=== PATIENT | female | born 1960 | race Caucasian/White ===

== ENCOUNTER → 2018-09-02 09:20 | Outpatient (CLI) | payer BC, SELFPAY ==
[2018-09-02 12:17] LABS: Absolute Neutrophil Count 2.7 X10^3/uL (2.0-7.7); Basophil# 0.02 X10^3/uL; Basophil% 0.4 % (0-1); Eosinophil# 0.16 X10^3/uL; Eosinophils% 3.1 % (0-5); Hematocrit 38.4 % (37-47); Hemoglobin 12.8 g/dl (12.0-15.0); Lymphocyte % 36.5 % (19-41); Mean Corp Hgb Conc 33.3 g/gl (32-36); Mean Corpuscular Hgb 31.1 pg (27.0-32.0); Mean Corpuscular Volume 93.4 fL (81-99); Mean Platelet Vol. 11.8 fl (6.2-12.0); Monocyte# 0.41 X10^3/uL; Monocyte% 7.9 % (0-10); Neutrophil # 2.71 X10^3/uL (2.7-7.7); Neutrophil % 52.1 % (47-70); Platelet Count 196 K/mm3 (150-450); RBC Distribution Width CV 12.8 % (11.6-14.6); Red Blood Count 4.11 M/mm3 (4.2-5.4); White Blood Count 5.2 K/mm3 (4.4-11.0)
[2018-09-02 12:22] LABS: POSITIVE COUNT NO; POSITIVE DIFFERENTIAL NO; POSITIVE MORPHOLOGY NO
[2018-09-02 12:31] LABS: Hemoglobin A1c 5.3 % (4.2-6.3)
[2018-09-02 12:38] LABS: Vitamin D,25 Hydroxy 32.4 ng/mL (29.95-100.01)
[2018-09-02 12:48] LABS: Homocysteine 7.6 umol/L (3.2-10.7)
[2018-09-02 15:17] LABS: ALB/GLOB Ratio 1.1 RATIO (0.9-2.4); AST(SGOT) 24 U/L (15-37); Alanine Aminotransfer ALT/SGPT 26 U/L (13-56); Albumin, Serum 3.7 g/dL (3.2-5.0); Alkaline Phosphatase 46 U/L (45-117); Anion Gap 10 (5-15); BUN 22 mg/dL (7-18); BUN/Creat Ratio 22.6 RATIO (10-20); CRP, High Sensitivity Cardiac 1.74 mg/L; Calcium,Total 8.7 mg/dL (8.5-10.1); Chloride 106 mmol/L (98-107); Cholesterol 205 mg/dL (200); Creatinine, Serum 0.97 mg/dL (0.55-1.02); EST Glomerular Filtration Rate 62 mL/min (>60); Est Glom Filt Rate - Afr Amer 75 mL/min (>60); Estradiol < 11.0 pg/mL; Ferritin 137 ng/mL (8-252); Follicle Stimulating Hormone 70.5 mIU/mL; Globulin 3.3 g/dL (2.2-4.2); Glucose 81 mg/dL (74-106); High Density Lipoprotein 55 mg/dL; Potassium 3.9 mmol/L (3.5-5.1); Sodium Level 142 mmol/L (136-145); T4 Free Direct 0.95 ng/dL (0.76-1.46); Thyroid Stim Hormone (TSH) 2.59 uIU/mL (0.358-3.74); Triglycerides 102 mg/dL; Very Low Density Lipoprotein 20 mg/dL (5-40)
[2018-09-06 19:07] LABS: DHEA Sulfate 86.6 ug/dL (29.4-220.5); Testosterone, Free 0.08 ng/dL (0.10-0.85); Testosterone, Total 8 ng/dL (3-41)
[2018-09-08 09:49] LABS: Estrogen, Total, Serum 63 pg/mL (.); Sex Hormone-binding Globulin 47.6 nmol/L (17.3-125.0)
--- OUTSIDE RECORDS SUMMARY | 2018-10-26 13:49 | XMS RPT_ITS ---
:1960 Author Organization OHIP Care Team Providers Name Role Phone Dr. Anel De Dios Admitting Unavailable Dr. Anel De Dios Attending Unavailable BRIT FREEMAN MD, JR. Attending Unavailable NAYLA PERALTA, DR. NAMRATA Magallanes Primary Care Unavailable BRIT FREEMAN MD, JR. Attending Unavailable NAYLA PERALTA, DR. NAMRATA Magallanes Primary Care Unavailable KIM WILLIAMSON Attending Unavailable KIM WILLIAMSON Referring Unavailable Namrata Morton Primary Care Unavailable PROBLEMS PROBLEMS DATE TYPE CONDITION / CODE ATTENDING STATUS SOURCE 09/13/2018 Unknown R74.0 - Nonspecific KIM WILLIAMSON Active [place] elevation of levels [facility] lactic acid Repository dehydrogenase [LDH] / R74.0(ICD-10) PROCEDURES PROCEDURES No Procedure Records FoundRESULTS RESULTS CBC W/DIFF, AUTOMATED Collected: 09/02/2018 Status: F Source: ERIC 9:39 AM [facility] HOSPITAL REPOSITORY TYPE CODE TESTS RESULT OUT OF RANGE REFERENCE UNITS LAB L100.1000 4.4-11.0 K/mm3 Normal WBC 5.2 LAB L100.1200 4.2-5.4 M/mm3 Low RBC 4.11 LAB L100.1300 12.0-15.0 g/dl Normal HGB 12.8 LAB L100.1400 37-47 % Normal HCT 38.4 LAB L100.1500 81-99 fL Normal MCV 93.4 LAB L100.1600 27.0-32.0 pg Normal MCH 31.1 LAB L100.1700 32-36 g/gl Normal MCHC 33.3 LAB L100.1810 11.6-14.6 % Normal RDW CV 12.8 LAB L100.1820 35.1-43.9 fl Normal RDW SD 43.0 LAB L100.1900 150-450 K/mm3 Normal PLT 196 LAB L100.2000 6.2-12.0 fl Normal MPV 11.8 LAB L100.2100 47-70 % Normal NEUT% 52.1 LAB L100.2200 19-41 % Normal LY% 36.5 LAB L100.2300 0-10 % Normal MONO% 7.9 LAB L100.2400 0-5 % Normal EO% 3.1 LAB L100.2500 0-1 % Normal BASO% 0.4 LAB L100.2550 0.0-0.9 % Normal IM GRAN % 0.000 Result Comment: IG% - Immature Granulocytes (promyelocytes, myelocytes and metamyelocytes) > 1% indicates that a LEFT SHIFT is Present. LAB L100.2620 2.0-7.7 X10 3/uL Normal Absolute Neut 2.7 LAB L100.2720 0.83-4.51 X10 3/ul Normal Absolute Lymph 1.90 Performed By: #### L100.0100 #### [facility] [address] [place], [place], [address] HEMOGLOBIN A1C Collected: 09/02/2018 Status: F Source: MINTER 9:39 AM [facility] REPOSITORY TYPE CODE TESTS RESULT OUT OF RANGE REFERENCE UNITS LAB L501.9985 4.2-6.3 % Normal HGB A1C 5.3 Performed By: #### L501.9985 #### [facility] [address] [place], [place], [address] VITAMIN D,25 HYDROXY Collected: 09/02/2018 Status: F Source: MINTER 9:39 AM [facility] REPOSITORY Order Comment: Comments: [id number] PREGNENOLONE FRZ TYPE CODE TESTS RESULT OUT OF RANGE REFERENCE UNITS LAB L506.1000 29.95-100.01 ng/mL Normal Vitamin D 32.4 25-OH Result Comment: Vitamin D 25(OH) Status Range Deficiency <20 ng/mL (50nmol/L) Insuffciency 20 - 30 ng/mL (50 - 75 nmol/L) Sufficiency 30 - 100 ng/mL (75 - 250 nmol/L) Toxicity >100 ng/mL (>250 nmol/L) Performed By: #### L506.1000, L509.4001, L509.6000 #### [facility] [address] [place], [place], [address] PROGESTERONE LEVEL Collected: 09/02/2018 Status: F Source: ERIC 9:39 AM [facility] REPOSITORY Order Comment: Comments: [id number] PREGNENOLONE FRZ TYPE CODE TESTS RESULT OUT OF REFERENCE UNITS RANGE LAB L509.4001 See Comment ng/mL Progesterone Normal 0.10 Result Comment: Progesterone Reference Table: UNITS Female: Follicular 0.15 - 1.40 ng/mL Luteal 3.34 - 25.56 ng/mL Mid-luteal 4.44 - 28.03 ng/mL Postmenopausal 0.0 - 0.73 ng/mL : 1st Trimester 11.22 - 90.00 ng/mL 2nd Trimester 25.55 - 89.40 ng/mL 3rd Trimester 48.40 -422.50 ng/mL Performed By: #### L506.1000, L509.4001, L509.6000 #### [facility] [address] [place], [place], [address] CORTISOL SERUM Collected: 09/02/2018 Status: F Source: ERIC 9:39 AM [facility] REPOSITORY Order Comment: Comments: [id number] PREGNENOLONE FRZ TYPE CODE TESTS RESULT OUT OF RANGE REFERENCE UNITS LAB L509.6000 3.09-22.40 ug/dL Normal CORTISOL 8.30 Result Comment: Adult (AM) 4.30 - 22.40 ug/dL Adult (PM) 3.09 - 16.66 ug/dL Performed By: #### L506.1000, L509.4001, L509.6000 #### [facility] [address] [place] [place], [address] HOMOCYSTEINE Collected: 09/02/2018 Status: F Source: ERIC 9:39 [facility] TYPE CODE TESTS RESULT OUT OF REFERENCE UNITS RANGE LAB L503.8001 3.2-10.7 umol/L HOMOCYSTEINE Normal 7.6 Performed By: #### L503.8001 #### [facility] [address] [place], [address] COMPREHENSIVE METABOLIC Collected: 09/02/2018 Status: F Source: ERIC LAI 9:39 AM [facility] REPOSITORY Order Comment: Has Patient had X-rays with Contrast this admission? N Comments: [id number] PREGNENOLONE FRZ TYPE CODE TESTS RESULT OUT OF RANGE REFERENCE UNITS LAB L501.0100 74-106 mg/dL Normal GLU 81 Result Comment: Please note revised GLUCOSE reference range effective 2017. LAB L501.1000 7-18 mg/dL High BUN 22 LAB L501.1100 0.55-1.02 mg/dL Normal CREAT,SERUM 0.97 Result Comment: The validity of the calculated GFR AND GFRAA in patients over 70 years has not been determined. Clinical correlation is essential. LAB L501.1110 >60 mL/min Normal EST GFR 62 Result Comment: Non- GFR Calc LAB L501.1115 >60 mL/min Normal EST GFR - AA 75 Result Comment: GFR Calc LAB L501.1300 10-20 RATIO High BUN/CRE 22.6 LAB L501.1500 6.4-8.2 g/dL T Normal PROT 7.0 LAB L501.1800 3.2-5.0 g/dL Normal ALB 3.7 LAB L501.1950 2.2-4.2 g/dL Normal GLOB 3.3 LAB L501.2000 0.9-2.4 RATIO Normal A/G 1.1 LAB L501.2200 8.5-10.1 mg/dL CA Normal 8.7 LAB L501.4100 15-37 U/L Normal AST 24 LAB L501.4305 45-117 U/L Normal ALK P 46 LAB L501.4405 13-56 U/L Normal ALT 26 LAB L501.4600 0.20-1.00 mg/dL T Normal BILI 0.30 LAB L501.5300 136-145 mmol/L NA Normal 142 LAB L501.5600 3.5-5.1 mmol/L K Normal 3.9 LAB L501.5900 98-107 mmol/L CL Normal 106 LAB L501.6100 21.0-32.0 mmol/L Normal CO2 26.0 LAB L501.6200 5-15 Normal GAP 10 Performed By: #### L500.4050, L500.4100, L501.6750, L501.01903, L501.9520, L503.6550, L506.0400, L3100.5125, L3300.1750 #### [facility] [address] [place], [address] LIPID PROFILE Collected: 09/02/2018 Status: F Source: MINTER 9:39 AM [facility] REPOSITORY Order Comment: Has Patient had X-rays with Contrast this admission? N Comments: [id number] PREGNENOLONE FRZ TYPE CODE TESTS RESULT OUT OF RANGE REFERENCE UNITS LAB L501.4900 200 mg/dL High CHOL 205 Result Comment: <200 mg/dL Desirable 200-240 mg/dL Borderline >240 mg/dL High Risk LAB L501.5000 mg/dL Normal TRIG 102 Result Comment: The drugs N-Acetylcysteine and Metamizole may falsely depress this assay. Serum Triglycerides Reference Interval Normal <150 mg/dL Borderline high 150 - 199 mg/dL High 200 - 499 mg/dL Very High > or = 500 mg/dL LAB L501.6400 mg/dL Normal HDL 55 Result Comment: The drugs N-Acetylcysteine and Metamizole may falsely depress this assay. Reference Range HDL <40 mg/dL Low HDL Cholesterol HDL >or= 60 mg/dL High HDL Cholesterol LAB L501.6500 0-130 mg/dL Normal LDL 130 LAB L501.6600 5-40 mg/dL Normal VLDL 20 Performed By: #### L500.4050, L500.4100, L501.6750, L501.33170, L501.9520, L503.6550, L506.0400, L3100.5125, L3300.1750 #### [facility] [address] [place], [address] CRP, HIGH SENSITIVITY Collected: 09/02/2018 Status: F Source: MINTER CARDIAC 9:39 [facility] REPOSITORY Order Comment: Has Patient had X-rays with Contrast this admission? N Comments: [id number] PREGNENOLONE FRZ TYPE CODE TESTS RESULT OUT OF RANGE REFERENCE UNITS LAB L501.6750 mg/L Normal CRP HIGH 1.74 SENS Result Comment: Low Relative Risk of CVD <1.0 mg/L Average Relative Risk of CVD 1.0 - 3.0 mg/L High Relative Risk of CVD >3.0 mg/L Performed By: #### L500.4050, L500.4100, L501.6750, L501.92949, L501.9520, L503.6550, L506.0400, L3100.5125, L3300.1750 #### [facility] [address] [place], [place], [id number] FREE T3 Collected: 09/02/2018 Status: F Source: ERIC 9:39 [facility] REPOSITORY Order Comment: Has Patient had X-rays with Contrast this admission? N Comments: [id number] PREGNENOLONE FRZ TYPE CODE TESTS RESULT OUT OF RANGE REFERENCE UNITS LAB L501.72499 2.18-3.98 pg/mL Normal FREE T3 3.0 Performed By: #### L500.4050, L500.4100, L501.6750, L501.01533, L501.9520, L503.6550, L506.0400, L3100.5125, L3300.1750 #### [facility] [address] [place], [place], [id number] THYROID STIM HORMONE Collected: 09/02/2018 Status: F Source: ERIC (TSH) 9:39 [facility] REPOSITORY Order Comment: Has Patient had X-rays with Contrast this admission? N Comments: [id number] PREGNENOLONE FRZ TYPE CODE TESTS RESULT OUT OF RANGE REFERENCE UNITS LAB L501.9520 0.358-3.74 uIU/mL Normal TSH 2.59 Performed By: #### L500.4050, L500.4100, L501.6750, L501.79639, L501.9520, L503.6550, L506.0400, L3100.5125, L3300.1750 #### [facility] [address] [place], [address] FERRITIN Collected: 09/02/2018 Status: F Source: MINTER 9:39 AM [facility] REPOSITORY Order Comment: Has Patient had X-rays with Contrast this admission? N Comments: [id number] PREGNENOLONE FRZ TYPE CODE TESTS RESULT OUT OF RANGE REFERENCE UNITS LAB L503.6550 8-252 ng/mL Normal FERRITIN 137 Performed By: #### L500.4050, L500.4100, L501.6750, L501.57015, L501.9520, L503.6550, L506.0400, L3100.5125, L3300.1750 #### [facility] [address] [place], [place], [id number] T4 FREE DIRECT Collected: 09/02/2018 Status: F Source: MINTER 9:39 AM [facility] REPOSITORY Order Comment: Has Patient had X-rays with Contrast this admission? N Comments: [id number] PREGNENOLONE FRZ TYPE CODE TESTS RESULT OUT OF RANGE REFERENCE UNITS LAB L506.0400 0.76-1.46 ng/dL Normal T4 FREE 0.95 DIRECT Performed By: #### L500.4050, L500.4100, L501.6750, L501.30357, L501.9520, L503.6550, L506.0400, L3100.5125, L3300.1750 #### [facility] [address] [place], [place], [address] FOLLICLE STIMULATING Collected: 09/02/2018 Status: F Source: ERIC HORMONE 9:39 AM [facility] REPOSITORY Order Comment: Has Patient had X-rays with Contrast this admission? N Comments: [id number] PREGNENOLONE FRZ TYPE CODE TESTS RESULT OUT OF RANGE REFERENCE UNITS LAB L3100.5125 mIU/mL Normal FSH 70.5 Result Comment: NORMAL REFERENCE RANGES FEMALE FOLLICULAR 2.3 - 12.6 mIU/mL MID-CYCLE PEAK 5.2 - 17.5 mIU/mL LUTEAL 1.7 - 12.9 mIU/mL POST-MENOPAUSAL ON MHT 5.9 - 72.8 mIU/mL NOT ON MHT 12.7 - 132.2 mlU/mL MALE 0.7 - 10.8 mIU/mL NEW TEST METHOD AND REFERENCE RANGES FEBRUARY 19, 2012 Performed By: #### L500.4050, L500.4100, L501.6750, L501.98276, L501.9520, L503.6550, L506.0400, L3100.5125, L3300.1750 #### [facility] [address] [place], [place], [address] (744) ESTRADIOL Collected: 09/02/2018 Status: F Source: ERIC 9:39 AM [facility] REPOSITORY Order Comment: Has Patient had X-rays with Contrast this admission? N Comments: [id number] PREGNENOLONE FRZ TYPE CODE TESTS RESULT OUT OF RANGE REFERENCE UNITS LAB L3300.1750 pg/mL Normal ESTRADIOL < 11.0 Result Comment: NORMAL REFERENCE RANGES FEMALE FOLLICULAR 21.4 - 164.8 pg/mL MID-CYCLE PEAK 49.9 - 367.2 pg/mL LUTEAL 40.2 - 259.0 pg/mL POST-MENOPAUSAL ON MHT <11.0 - 462.1 pg/mL NOT ON MHT <11.0 - 58.3 pg/mL MALE <11.0 - 52.5 pg/mL NOTE: [facility] HAS CONFIRMED THE DRUG FULVETRANT (FASLODEX) MAY CAUSE FALSELY ELEVATED ESTRADIOL RESULTS WHEN USING THIS TEST METHOD. IF PATIENT IS TAKING FULVESTRANT AN ALTERNATIVE METHOD SHOULD BE USED TO DETERMINE ESTRADIOL CONCENTRATION. Performed By: #### L500.4050, L500.4100, L501.6750, L501.36243, L501.9520, L503.6550, L506.0400, L3100.5125, L3300.1750 #### [facility] [address] [place], [place], [address] SEX HORMONE-BINDING Collected: 09/02/2018 Status: F Source: ERIC GLOBULIN 9:39 AM [facility] REPOSITORY Order Comment: Has Patient had X-rays with Contrast this admission? N Comments: [id number] PREGNENOLONE FRZ Has Patient had Radioactive Injection for X-ray?: N TYPE CODE TESTS RESULT OUT OF RANGE REFERENCE UNITS LAB L3100.5060 17.3-125.0 nmol/L Normal SHBG 47.6 Result Comment: Performed at: CB - [facility] [address] [id number] Commercial Kitchen Service Technician: Didier Barrera PhD, Phone: [phone] Performed at: - [facility] [address] [id number] Commercial Kitchen Service Technician: Tam Veloz MD, Phone: [phone] Performed By: #### L3100.5060, L3100.5310, L3300.1500, L3400.0200 #### [facility] (refer to report for specific site) refer to report for address and phone number TESTOSTERONE, TOTAL / Collected: 09/02/2018 Status: F Source: ERIC FREE 9:39 AM [facility] REPOSITORY Order Comment: Has Patient had X-rays with Contrast this admission? N Comments: [id number] PREGNENOLONE FRZ Has Patient had Radioactive Injection for X-ray?: N TYPE CODE TESTS RESULT OUT OF RANGE REFERENCE UNITS LAB L3100.5320 3-41 ng/dL Normal TESTOSTER,TOTAL 8 LAB L3100.5340 0.10-0.85 ng/dL Low TESTOSTER,FREE 0.08 LAB L3100.5360 0.50-2.80 % Normal TESTOSTER %FREE 1.00 Performed By: #### L3100.5060, L3100.5310, L3300.1500, L3400.0200 #### [facility] (refer to report for specific site) refer to report for address and phone number DHEA SULFATE Collected: 09/02/2018 Status: F Source: ERIC 9:39 AM [facility] REPOSITORY Order Comment: Has Patient had X-rays with Contrast this admission? N Comments: [id number] PREGNENOLONE FRZ Has Patient had Radioactive Injection for X-ray?: N TYPE CODE TESTS RESULT OUT OF RANGE REFERENCE UNITS LAB L3300.1500 29.4-220.5 ug/dL Normal DHEA SULF 86.6 4020 Performed By: #### L3100.5060, L3100.5310, L3300.1500, L3400.0200 #### [facility] (refer to report for specific site) refer to report for address and phone number ESTROGEN, TOTAL, SERUM Collected: 09/02/2018 Status: F Source: ERIC 9:39 AM [facility] REPOSITORY Order Comment: Has Patient had X-rays with Contrast this admission? N Comments: [id number] PREGNENOLONE FRZ Has Patient had Radioactive Injection for X-ray?: N TYPE CODE TESTS RESULT OUT OF RANGE REFERENCE UNITS LAB L3400.0200 . pg/mL Normal ESTROGEN 4549 63 Result Comment: Prepubertal <40 Female Cycle: 1-10 Days 61 - 394 11-20 Days 122 - 437 21-30 Days 156 - 350 Post-Menopausal <40 HMG Treatment for Ovulation Induction: 400 - 800 Performed By: #### L3100.5060, L3100.5310, L3300.1500, L3400.0200 #### [facility] (refer to report for specific site) refer to report for address and phone number MISCELLANEOUS LAB Collected: 09/02/2018 Status: F Source: ERIC PROCEDURE 9:39 AM [facility] REPOSITORY Order Comment: Comments: [id number] PREGNENOLONE FRZ Test(s) Ordered: [id number] PREGNENOLONE FRZ TYPE CODE TESTS RESULT OUT OF RANGE REFERENCE UNITS LAB L801.1541 Normal [facility] LAB TEST Result Comment: TEST RESULT LIMITS Pregnenolone, MS 19 ng/dL Reference Range: Adults: <151 TESTING PERFORMED AT [facility]. ORIGINAL REPORT ON FILE IN LAB CONTAINS ADDITIONAL TEST SITE INFORMATION. Performed By: #### L801.1541 #### [place] [facility] [address] [place], [id number] HAND, MINIMUM 3 Observed: 12/26/2017 Status: F Source: [facility] 2:11 PM [facility] REPOSITORY Final Report Accession No: [id number] Performed: Dec 26 2017 2:11PM Examination: LEFT HAND, MINIMUM 3 VIEWS EXAM TYPE: HAND, MINIMUM 3 VIEWS LEFT EXAM DATE AND TIME: 12/26/2017 2:11 PM INDICATION: 57-year-old female with fifth metacarpal pain after trauma. COMPARISON: None. TECHNIQUE: AP, lateral and oblique views of the left hand. FINDINGS: No acute fracture. Joint alignment is anatomic. Joint spaces are preserved. Soft tissue swelling over the ulnar aspect of the hand. IMPRESSION: No acute fracture or traumatic malalignment. Interpreting Physician: TITO CAREY D.O. Trans: dw : cc: ALLERGIES ALLERGIES No Allergies Records FoundENCOUNTERS ENCOUNTERS ADMIT/DISCHARGE ACCOUNT NUMBER ADMITTING ENCOUNTER LOCATION SOURCE CLASS 09/02/2018 [id number] Ambulatory [facility] ding:MTLAB Repository 05/23/2018/05/23/[id number] ding:ZZZ Foundation Repository 01/10/2018/01/11/[id number] ding:ZZZ [facility] Repository 12/26/[id number] Lanre [facility] Repository PAYERS PAYERS ENCOUNTER GUARANTOR PAYER SUBSCRIBER SOURCE 09/02/2018 GUY L Primary GUY [facility] [id number] Insurance:ANTHEMPolicy SCHENIANDOB: [facility] Number: [id number] [place], [place] [id number] Repository [address]Ogu: ([phone]) Date:[phone] () [phone], [place] [address]VP: 09/02/2018 Secondary NOT GIVENUNK [place] Insurance:SELF PAY [place] Number: Effective Repository Date:2018-09-02 05/23/2018 GUY Primary [facility] SCHENIANDOB: Insurance:ANTHEM BLUE SCHENIANDOB: Foundation [id number] [facility] [id number] Repository [place] Number: [address] [facility], [place] [id number] [facility], [place] [address]Wnx: ([phone]) Date:2018-05-23Tel: (HP) [id number] Name:BPO BOX (HP)Tel: [phone]) [phone], [place] 000[address] (WP) [id number]: 01/10/2018 GUY [facility] SCHENIANDOB: Insurance:GREGORY HDEZ SCHENIANDOB: [facility] [facility] [id number] Repository [place] Number: [address] [facility], [place] [id number] [facility], [place] [address]Unk: [phone]) Date:2018-01-10Tel: (HP) [id number] Name:BPO BOX (HP)Tel: [phone]) [phone], [place] 000[address] (WP) [phone]: 12/26/2017 Primary Insurance:Errol Casey [address] SCHENIANDOB: [place] and Number: [id number] [facility] [id number] 6 [place] Repository Date:Plan Name:[place] [address]
--- OUTSIDE RECORDS SUMMARY | 2018-10-26 13:49 | XMS RPT_ITS | Summary of Care ---
:1960 Author Organization [facility] Address [address] [place] [address] Care Team Providers Name Role Phone Unavailable Primary Care Provider Unavailable Encounter Details Date Type Department Care Team Description 12/26/2017 Hospital Encounter [facility] Anel De Dios MD [address] [place] [id number] Social History Tobacco Use Types Packs/Day Years Used Date Never Assessed Sex Assigned at Date Recorded Not on file as of this encounter Plan of Treatment Not on fileas of this encounter
== END ==
PROVIDERS: Family Provider Family Medicine; PCP Family Medicine
DX: R74.0 Nonspecific elevation of levels of transaminase and lactic acid dehydrogenase [LDH] (principal)
CPT/HCPCS: 36415; 80053; 80061; 82306; 82533; 82627; 82670; 82672; 82728; 83001; 83036; 83090; 84144; 84270; 84402; 84403; 84439; 84443; 84481; 85025; 86141; 82626

== ENCOUNTER 2021-10-26 06:41 | Outpatient (CLI) | payer BC, SELFPAY ==
--- NOTE | 2021-10-26 06:48 | MRI_ITS ---
HISTORY: AMAUROSIS, H/O DETACHED RETINA L EYE 2020 FOLLOWED BY BRIEF LOSS OF VISION IN R EYE X 5 MIN. TECHNIQUE: Multiplanar and multisequence MR images of the brain were obtained without gadolinium. # of images incl. paperwork: 289. COMPARISON: 03/14/2013. FINDINGS: BRAIN PARENCHYMA: Very mild T2 FLAIR hyperintense signal in the bilateral cerebral white matter, not progressed from prior. No abnormal focus of restricted diffusion. INTRACRANIAL HEMORRHAGE: No acute intracranial hemorrhage. CSF SPACES: Cerebral ventricles, cortical sulci, and other extra-axial CSF spaces within normal limits in size. No midline shift or other significant mass effect. No extra-axial fluid collection. VASCULAR SYSTEM: Major intracranial flow-voids maintained. ORBITS: Unremarkable and symmetric contents. PARANASAL SINUSES AND MASTOID AIR CELLS: Clear. MRI/Brain without Contrast IMPRESSION: No evidence for acute infarct, acute intracranial hemorrhage, or significant mass effect. Mild chronic small vessel ischemic gliosis. at 1104 Reported and signed by: Karolyn Mcnamara MD Electronically Signed: Karolyn Mcnamara MD at 11:02 EST ,
--- NOTE | 2021-10-26 06:48 | ECHOCS_ITS ---
Reason For Study: Amaurosis Fugax Procedure This was a 2D Doppler, Color Flow transthoracic echocardiogram. Technically difficult study, contrast injection and bubble study performed. The study was technically difficult. Contrast injection was performed. Exam performed in department. Left Ventricle Normal LV size. Left ventricular systolic function is normal. The estimated ejection fraction is 60 %. No evidence for diastolic dysfunction. No regional wall motion abnormalities noted. Right Ventricle Normal RV size. Normal systolic function. Atria Normal left atrium. Normal right atrium. No doppler evidence for ASD. Bubble contrast study negative for right to left interatrial shunt. Mitral Valve There is no mitral annular calcification. Anterior leaflet diffuse mitral valve thickening. Mild (1+) mitral valve insufficiency. Tricuspid Valve Normal tricuspid valve. Trivial tricuspid valve insufficiency. Right ventricular systolic pressure estimated to be 16 mmHg. Aortic Valve Trisinus/trileaflet aortic valve. Normal aortic valve. Trivial aortic valve insufficiency. Pulmonic Valve The pulmonic valve is not well visualized. Trivial pulmonic valve insufficiency. Great Vessels The aortic root is not well visualized. Pericardium/Pleural No pericardial effusion. Medication 22 gauge I.V. with prn adaptor inserted into left arm. Diluted definity 3ml given slow IV push to enhance endocardial definition. Performed a rapid injection of agitated mix of 9 cc saline and 1cc air to assess for atrial septal defect. MMode/2D Measurements & Calculations LVIDd: 4.1 cm IVSd: 0.89 cm LA dimension: 3.1 cm LVIDs: 2.8 cm LVPWd: 0.69 cm RVDd: 3.4 cm FS: 31.1 % LAV(MOD-bp): 29.8 ml LA A4 area: 13.0 cm2 RA A4 area: 15.3 cm2 LAV(MOD-bp) Indexed: 16.8 ml/m2 LAV(MOD-sp2): 27.7 ml LAV(MOD-sp4): 31.8 ml Time Measurements MV dec time: 0.24 sec Doppler Measurements & Calculations MV E max chuy: 49.5 cm/sec Lat Peak E' Chuy: 6.9 cm/sec Med Peak E' Chuy: 8.5 cm/sec MV A max chyu: 72.5 cm/sec E/E' lat: 7.2 E/E' med: 5.9 MV E/A: 0.68 MV V2 max: 85.4 cm/sec MV P1/2t max chuy: 69.0 cm/sec Ao V2 max: 108.1 cm/sec MV max P.9 mmHg MV P1/2t: 105.7 msec Ao max P.7 mmHg MV V2 mean: 42.0 cm/sec MV dec slope: 191.2 cm/sec2 MV mean P.85 mmHg MV V2 VTI: 25.4 cm MVA(P1/2t): 2.1 cm2 AI max chuy: 368.2 cm/sec LV V1 max: 71.8 cm/sec PA V2 max: 75.1 cm/sec AI max P.2 mmHg LV V1 max P.1 mmHg AI dec slope: 125.8 cm/sec2 AI P1/2t: 857.0 msec TR max chuy: 181.0 cm/sec TR max P.1 mmHg ECHO/Echo Complete W/ Contrast Interpretation Summary The study was technically difficult. Contrast injection was performed. Left ventricular systolic function is normal. The estimated ejection fraction is 60 %. Anterior leaflet diffuse mitral valve thickening. Mild (1+) mitral valve insufficiency. Trivial tricuspid valve insufficiency. Trivial aortic valve insufficiency. Trivial pulmonic valve insufficiency. Right ventricular systolic pressure estimated to be 16 mmHg. No evidence for diastolic dysfunction. Bubble contrast study negative for right to left interatrial shunt. Ordering Physician: Yonathan Basilio Referring Physician: Yonathan Basilio Performed By: Drew Delgadillo RCS
--- NOTE | 2021-10-26 06:49 | CDU_ITS ---
Reason For Study: Amaurosis fugax Rt. Velocities/BP Lt. Velocities/BP Prox CCA 90.4/22.6 cm/sec. Prox CCA 103.5/33.5 cm/sec. Mid CCA 76/26.5 cm/sec. Mid CCA 92.5/29.8 cm/sec. Dist CCA 72.1/27.8 cm/sec. Dist CCA 76.5/31.1 cm/sec. Prox ICA 64.3/23.9 cm/sec. Prox ICA 60.8/22.3 cm/sec. Mid ICA 83.9/35.6 cm/sec. Mid ICA 67.3/25.6 cm/sec. Dist ICA 93/35.6 cm/sec. Dist ICA 96/33.3 cm/sec. Rt. ICA/CCA = 1.2. Lt. ICA/CCA = 1.0. Prox ECA 94.3/22.6 cm/sec. Prox ECA 49.5/10.2 cm/sec. Rt. Vert. 39.9/14.6 cm/sec. Lt. Vert. 47.4/16.8 cm/sec. Right Extracranial There is intimal thickening but no significant atherosclerotic plaque noted in the right common carotid artery. There is intimal thickening but no significant atherosclerotic plaque noted in the right internal carotid artery. There is intimal thickening but no significant atherosclerotic plaque noted in the right external carotid artery. Antegrade flow is noted in the right vertebral artery. Left Extracranial There is intimal thickening but no significant atherosclerotic plaque noted in the left common carotid artery. There is homogeneous, smooth atherosclerotic plaque noted in the left internal carotid artery. There is intimal thickening but no significant atherosclerotic plaque noted in the left external carotid artery. Antegrade flow is noted in the left vertebral artery. Procedure Carotid Duplex [id number]. This is a Carotid Duplex examination using B-mode, color flow and specral Doppler. Exam performed in department. VL/Carotid Duplex Ultrasound Interpretation Summary No significant atherosclerotic plaque or stenosis noted in the internal carotid arteries bilaterally. Flow within the vertebral arteries is antegrade bilaterally. Ordering Physician: Yonathan Basilio Referring Physician: Yonathan Basilio Performed By: Cheri Whyte RVT
[2021-10-26 07:39] LABS: Hematocrit 39.6 % (37-47); Hemoglobin 13.2 g/dL (12.0-15.0); Mean Corp Hgb Conc 33.3 g/dL (32-36); Mean Corpuscular Hgb 30.8 pg (27.0-32.0); Mean Corpuscular Volume 92.3 fL (81-99); Mean Platelet Vol. 11.3 fl (6.2-12.0); Platelet Count 224 K/mm3 (150-450); RBC Distribution Width CV 12.8 % (11.6-14.6); RBC Distribution Width SD 43.3 fl (35.1-43.9); Red Blood Count 4.29 M/mm3 (4.2-5.4); White Blood Count 6.1 K/mm3 (4.4-11.0)
[2021-10-26 08:44] LABS: Anion Gap 5 (5-15); BUN 22 mg/dL (7-18); BUN/Creat Ratio 22.6 RATIO (10-20); Calcium,Total 9.2 mg/dL (8.5-10.1); Chloride 107 mmol/L (98-107); Cholesterol 219 mg/dL (200); Creatinine, Serum 0.98 mg/dL (0.55-1.02); EST Glomerular Filtration Rate 62 mL/min (>60); Est Glom Filt Rate - Afr Amer 75 mL/min (>60); Glucose 99 mg/dL (74-106); High Density Lipoprotein 54 mg/dL; Potassium 4.3 mmol/L (3.5-5.1); Sodium Level 140 mmol/L (136-145); Triglycerides 131 mg/dL; Very Low Density Lipoprotein 26 mg/dL (5-40)
== END 2021-10-26 23:59 | disposition short-term general hospital (02) ==
PROVIDERS: PCP Family Medicine; Referring Provider Family Medicine; Visit Provider Family Medicine
DX: H53.131 Sudden visual loss, right eye (principal); R07.9 Chest pain, unspecified
CPT/HCPCS: 36415; 70551; 80048; 80061; 85027; 93306; 93880; Q9957; A4216; C8929

== ENCOUNTER → 2022-03-01 | Outpatient (CLI) | payer OTHER, SELFPAY | END | disposition home or self-care (01) | PROVIDERS: PCP Family Medicine; Visit Provider Family Medicine | DX: U07.1 COVID-19 (principal); J06.9 Acute upper respiratory infection, unspecified | CPT/HCPCS: 87635; U0003; U0005 ==

== ENCOUNTER → 2023-04-06 | Outpatient (CLI) | payer BC, SELFPAY ==
[2023-04-06 16:56] LABS: Amphetamine Urine VISTA NEGATIVE (<1000 ng/mL); Barbiturate Urine VISTA NEGATIVE (< 200 ng/mL); Benzodiazepine Urine VISTA NEGATIVE (< 200 ng/mL); Cocaine Urine VISTA NEGATIVE (< 300 ng/mL); Ecstacy Urine VISTA NEGATIVE (< 500 ng/mL); Methadone Urine VISTA NEGATIVE (< 300 ng/mL); PCP Urine VISTA NEGATIVE (< 25 ng/mL); THC Urine VISTA NEGATIVE (< 50 ng/mL); Vista UDS pH Range 6
== END | disposition home or self-care (01) ==
LOC: LAB 15:20
PROVIDERS: PCP Family Medicine; Referring Provider Internal Medicine Pulmonary Disease; Visit Provider Internal Medicine Pulmonary Disease
DX: G47.10 Hypersomnia, unspecified (principal)
CPT/HCPCS: 80307

== ENCOUNTER → 2023-05-09 | Outpatient (CLI) | payer BC, SELFPAY ==
--- NOTE | 2023-05-09 08:56 | BI_ITS ---
MAMMOGRAPHY - BILATERAL SCREENING REASON FOR EXAM: Female, 63 years old. Routine annual screening examination. PERTINENT HISTORY: Non-contributory. TECHNIQUE: Digital bilateral breast segun (3D mammographic acquisition) in the CC and MLO projections. 2-D mediolateral oblique (MLO) and craniocaudad (CC) views of both breasts were obtained. CAD: Full Field Digital Mammography with Computer Added Detection was performed. COMPARISON: Comparison is made with prior outside examination December 19, 2015 FINDINGS: Breast Composition: The breasts are extremely dense, which lowers the sensitivity of mammography. There are no dominant masses or suspicious calcifications. Stable benign-appearing bilateral axillary lymph nodes. No other significant abnormalities are identified. There has been no significant change since the prior study. BI/SCRN MAMM (CAD)W/SEGUN BILAT IMPRESSION: Stable bilateral screening mammogram. Yearly follow-up mammogram recommended. (A) ASSESSMENT CATEGORY: BIRADS Category 2: Benign. A letter regarding these results will be sent to the patient by the facility within 30 days. Approximately 10% of breast cancers are not detected by mammography. A normal mammogram should not delay biopsy of a clinically suspicious abnormality. [id number] Electronically Signed: Shawn Gray MD at 12:15 EDT ,
== END | disposition home or self-care (01) ==
LOC: OPBI 08:54
PROVIDERS: PCP Family Medicine; Referring Provider Family Medicine; Visit Provider Family Medicine
DX: Z12.31 Encounter for screening mammogram for malignant neoplasm of breast (principal)
CPT/HCPCS: 77063; 77067

== ENCOUNTER 2023-08-17 08:34 | Day surgery (SDC) | payer BC, SELFPAY ==
[2023-08-17] VITALS (7 sets, daily range): BP systolic 98–106; BP diastolic 53–64; PULSE 64–78; RESP 16–64; TEMP 36.5–37.4; O2SAT 96–99; BMI 26.4
[2023-08-17] MEDS: Lactated Ringers 1,000 ML 15 ML IV (08:59)
--- NOTE | 2023-08-17 09:25 | HP.PCM_ITS ---
[facility] - General General Date of Service: 08/17/23 Chief Complaint: Screening for intestinal cancer HPI Narrative GUY EASTON, is a 63 F who presents today for screening colonoscopy. She presents via open access. Previous examination was 2012 and was normal at that time. I have assisted her previously with a deep anterior anal fissure repair which is remained healed. No abdominal pain. No bright red blood per rectum or melena. No unexpected weight loss. No history of DVT. [facility] Medical History (Updated 08/14/23 @ 15:27 by Sonia Nino) A-fib Asthma CPAP (continuous positive airway pressure) dependence History of echocardiogram History of rectal fissure Non-smoker PVC's (premature ventricular contractions) Sleep apnea Sleep apnea with use of continuous positive airway pressure (CPAP) Wears glasses Home Medications albuterol sulfate 90 mcg/actuation aerosol inhaler (ProAir HFA) 2 puff inhalation Q4H PRN shortness of breath or wheezing 06/21/23 [History Last Taken Unknown] cetirizine 10 mg capsule (Zyrtec) 10 mg PO DAILY PRN allergy symptoms 06/21/23 [History Last Taken Unknown] fluticasone propionate 50 mcg/actuation nasal spray,suspension (Flonase Allergy Relief) 2 spray intranasal DAILY 06/21/23 [History Last Taken Unknown] multivitamin 1 tab PO DAILY 06/21/23 [History Last Taken Unknown] omega-3 fatty acids-fish oil 360 mg-1,200 mg capsule (Fish Oil) 1 cap PO DAILY 06/21/23 [History Last Taken Unknown] dextroamphetamine-amphetamine 30 mg tablet (Adderall) 30 mg PO DAILY 08/14/23 [History Last Taken Unknown] Allergy/AdvReac Type Severity Reaction Status Date / Time erythromycin base AdvReac Diarrhea Verified 08/14/23 15:16 Family History (Updated 06/21/23 @ 14:43 by Kimberly Khan) Unknown Heart disease Sister Sarcoidosis Surgical History (Updated 08/14/23 @ 15:27 by Sonia Nino) History of rectal surgery (~1967) History of tonsillectomy History of wisdom tooth extraction (~1977) Hx of colonoscopy Hx of vaginal hysterectomy Social History Smoking Status: Never smoker ROS Constitutional Constitutional: Reports systems reviewed and no addt'l complaints, except as documented Cardiovascular Cardiovascular: Denies chest pain Respiratory/Chest Respiratory/Chest: Denies shortness of breath at rest Gastrointestinal Gastrointestinal: Denies abdominal pain, change in bowel habits, hematochezia or melena Vital Signs Vital Signs Vital Signs: 08/17/23 09:00 08/17/23 09:00 Temperature 98.5 F Temperature Source Temporal Pulse Rate 78 Respiratory Rate 18 Respiratory Pattern Normal Blood Pressure 106/64 Blood Pressure Mean 78 Blood Pressure Source Monitor Blood Pressure Position Semi-Fowlers Blood Pressure Location Right Arm Pulse Ox 98 Oxygen Delivery Method Room Air Weight Weight: 159 lb Body Mass Index (BMI) 26.4 Physical Exam Const alert, oriented x3 and no apparent distress General Appearance: cooperative and comfortable Eyes General Eye: normal appearance of both eyes Neck General: normal visual inspection Chest inspection of chest normal Resp Effort and Inspection: able to speak in complete sentences and symmetric chest movement Auscultation: clear to auscultation bilaterally Cardio regular rate and regular rhythm GI soft to palpation, non-tender and non-distended Extremity no calf tenderness Neuro oriented x3 Psych thought process normal Assessment & Plan Assessment/Plan (1) Encounter for screening for malignant neoplasm of colon: PLAN: 63-year-old female presents for screening colonoscopy today via open access. She is aware of the technique, benefit, risk, alternatives. She has had an opportunity to ask and have questions answered. We will proceed as noted. Davis Cervantes M.D., F.A.C.S.
--- NOTE | 2023-08-17 09:49 | OP.COLON_ITS ---
Patient Name: Shawna Lock Procedure Date: 08/17/2023 9:25 AM Date of : 1960 Age: 63 Procedure: Colonoscopy Indications: Screening for colorectal malignant neoplasm Providers: Davis Cervantes MD Referring MD: Davis Cervantes MD Medicines: See the Anesthesia note for documentation of the administered medications Patient Profile: Last Colonoscopy: 2012. Complications: No immediate complications. Procedure: Pre-Anesthesia Assessment: - Prior to the procedure, a History and Physical was performed, and patient medications and allergies were reviewed. The patient's tolerance of previous anesthesia was also reviewed. The risks and benefits of the procedure and the sedation options and risks were discussed with the patient. All questions were answered, and informed consent was obtained. Prior Anticoagulants: The patient has taken no anticoagulant or antiplatelet agents. ASA Grade Assessment: II - A patient with mild systemic disease. After reviewing the risks and benefits, the patient was deemed in satisfactory condition to undergo the procedure. After I obtained informed consent, the scope was passed under direct vision. Throughout the procedure, the patient's blood pressure, pulse, and oxygen saturations were monitored continuously. The Colonoscope was introduced through the anus and advanced to the cecum, identified by appendiceal orifice and ileocecal valve. The colonoscopy was performed without difficulty. The patient tolerated the procedure well. The quality of the bowel preparation was good. The ileocecal valve and the appendiceal orifice were photographed. Scope In: 9:32:46 AM Scope Withdrawal Time 0 hours 7 minutes 20 seconds Scope Out: 9:44:39 AM Total Procedure Duration Time 0 hours 11 minutes 53 seconds Findings: The perianal and digital rectal examinations were normal. Multiple diverticula were found in the sigmoid colon and descending colon. The exam was otherwise without abnormality. Impression: - Diverticulosis in the sigmoid colon and in the descending colon. - The examination was otherwise normal. - No specimens collected. Recommendation: - Discharge patient to home. - Resume previous diet. - Continue present medications. - Repeat colonoscopy in 10 years for screening purposes. Procedure Code(s): --- Professional --- 22438, Colonoscopy, flexible; diagnostic, including collection of specimen(s) by brushing or washing, when performed (separate procedure) Diagnosis Code(s): --- Professional --- Z12.11, Encounter for screening for malignant neoplasm of colon K57.30, Diverticulosis of large intestine without perforation or abscess without bleeding CPT copyright 2021 [employer]. All rights reserved. The codes documented in this report are preliminary and upon fixed wing aircraft flight mechanic review may be revised to meet current compliance requirements. Davis Cervantes MD 08/17/2023 9:49:16 AM This report has been signed electronically. Number of Addenda: 0 Note Initiated On: 08/17/2023 9:25 AM
--- NOTE | 2023-08-17 09:49 | OP.CCLET_ITS ---
08/17/2023 Yonathan Basilio [address] [place] [address] Re : Colonoscopy procedure for Shawna Lock Dear Dr. Basilio This procedure was performed on Thursday, August 17, 2023. My impressions and recommendations are as follows: Impressions : - Diverticulosis in the sigmoid colon and in the descending colon. - The examination was otherwise normal. - No specimens collected. Recommendations : - Discharge patient to home. - Resume previous diet. - Continue present medications. - Repeat colonoscopy in 10 years for screening purposes. My findings are described in the full procedure note, which is enclosed. If I can be of further assistance, please feel free to contact me at Doctor phone number(s): Work: . Sincerely, Davis Cervantes MD 08/17/2023 9:49:16 AM This report has been signed electronically.
== END 2023-08-17 10:51 | disposition home or self-care (01) ==
LOC: EN 08:36 → AC 08:37
PROVIDERS: PCP Family Medicine; Referring Provider Family Medicine; Visit Provider Surgery
PROC: 0DJD8ZZ Inspection of Lower Intestinal Tract, Via Natural or Artificial Opening Endoscopic (ICD-10-PCS; CPT 45378; principal; 2023-08-17 09:25)
DX: Z12.11 Encounter for screening for malignant neoplasm of colon (principal); K57.30 Diverticulosis of large intestine without perforation or abscess without bleeding; J45.909 Unspecified asthma, uncomplicated
CPT/HCPCS: 45378; J7120; J2405

== ENCOUNTER → 2024-07-11 | Outpatient (CLI) | payer BC, SELFPAY ==
--- NOTE | 2024-07-11 14:04 | RAD_ITS ---
EXAM: XR CHEST, 2 VIEWS CLINICAL INDICATION: COVID, COUGH TECHNIQUE: Frontal and lateral views of the chest. COMPARISON: No relevant prior studies available. FINDINGS: LUNGS AND PLEURAL SPACES: Unremarkable. No consolidation or edema. No pneumothorax. No effusion. HEART: Unremarkable. Cardiac silhouette not enlarged. MEDIASTINUM: Central airways and mediastinal contour are unremarkable. BONES/JOINTS: Unremarkable. No acute fracture. SOFT TISSUES: Unremarkable. RAD/Chest PA and Lateral IMPRESSION: No radiographic evidence of acute cardiopulmonary disease. Electronically Signed: Noman Yip MD at 16:03 EDT ,
== END | disposition home or self-care (01) ==
LOC: MTLAB 13:59 → MTRAD 14:00
PROVIDERS: PCP Family Medicine; Referring Provider Internal Medicine Pulmonary Disease; Visit Provider Internal Medicine Pulmonary Disease
DX: U07.1 COVID-19 (principal); R05.9 Cough, unspecified
CPT/HCPCS: 71046

== ENCOUNTER → 2024-07-22 | Outpatient (CLI) | payer BC, SELFPAY ==
--- NOTE | 2024-07-22 07:05 | BI_ITS ---
MAMMOGRAPHY - BILATERAL SCREENING REASON FOR EXAM: Female, 64 years old. Routine annual screening examination. PERTINENT HISTORY: Non-contributory. TECHNIQUE: Digital bilateral breast segun (3D mammographic acquisition) in the CC and MLO projections. 2-D mediolateral oblique (MLO) and craniocaudad (CC) views of both breasts were obtained. CAD: Full Field Digital Mammography with Computer Added Detection was performed. COMPARISON: Comparison is made with prior study dated May 09, 2023. FINDINGS: Breast Composition: The breasts are extremely dense, which lowers the sensitivity of mammography. There are no dominant masses or suspicious calcifications. No other significant abnormalities are identified. There has been no significant change since the prior study. BI/SCRN MAMM (CAD)W/SEGUN BILAT IMPRESSION: Stable bilateral screening mammogram. Yearly follow-up mammogram recommended. (A) ASSESSMENT CATEGORY: BIRADS Category 1: Negative. A letter regarding these results will be sent to the patient by the facility within 30 days. Approximately 10% of breast cancers are not detected by mammography. A normal mammogram should not delay biopsy of a clinically suspicious abnormality. [id number] Electronically Signed: Shawn Gray MD at 8:48 EDT ,
--- OUTSIDE RECORDS SUMMARY | 2024-07-22 07:07 | XMS RPT_ITS | CCD ---
Author Organization [facility]ini[facility] Care Team Providers Care Piano Sounding Board Matcher Name Role Phone Unavailable Unavailable Unavailable White, Anel L Unavailable Unavailable White, Anel L Unavailable Unavailable BRIT FREEMAN JR. Unavailable Unavailable NAMRATA WINSLOW Unavailable Unavailable BRIT FREEMAN JR. Unavailable Unavailable NAMRATA WINSLOW Unavailable Unavailable Unavailable Primary Care Provider Namrata Tena MD Primary Care Provider VANESSA MCINTOSH Attending Unavailable NAMRATA WINSLOW Primary Care Unavailable Allergies Allergy Classification Reported Allergen(s) Allergy Type Date of Onset Reaction(s) Facility (2 sources) ENVIRONMENTAL [Other] Propensity to adverse reactions 6 [facility] Work Phone: (1 source) OTHER; Translations: [OTHER] Propensity to adverse reactions (disorder) 6 [facility] Repository Medications Current Medications Medication Drug Class(es) Dates Sig (Normalized) Sig (Original) Acyclovir (2 sources) Herpesvirus Nucleoside Analog DNA Polymerase Inhibitor, Herpes Simplex Virus Nucleoside Analog DNA Polymerase Inhibitor, Herpes Zoster Virus Nucleoside Analog DNA Polymerase Inhibitor ACYCLOVIR ORAL Take by mouth. Active armodafinil 250 mg oral tablet (2 sources) take 1 tablet by mouth once daily armodafinil (NUVIGIL) 250 mg Tab Take by mouth once daily. Active calcium carbonate 185 mg oral tablet (2 sources) Start: 06-10-2009 calcium carbonate(CORAL CALCIUM 185 MG TAB) one tablet daily 0 06/10/2009 Active Calcium Carbonate / vitamin D3 (2 sources) CALCIUM CARBONATE/VITAMIN D3 (VITAMIN D-3 ORAL) Take by mouth. Active cetirizine hydrochloride 10 mg oral tablet (2 sources) Histamine-1 Receptor Antagonist Start: 07-12-2009 cetirizine hcl(ZYRTEC 10 MG TAB) Use as directed as needed. 0 07/12/2009 Active cod liver oil(COD LIVER OIL CHEWABLE TAB) (2 sources) Start: 07-12-2009 cod liver oil(COD LIVER OIL CHEWABLE TAB) Take one (1) tablet daily. 0 07/12/2009 Active DAILY MULTIVITAMIN TAB (2 sources) Start: 11-23-2005 DAILY MULTIVITAMIN TAB 0 11/23/2005 Active DULoxetine 30 mg delayed release oral capsule (2 sources) Serotonin and Norepinephrine Reuptake Inhibitor Start: 02-13-2014 take 1 capsule by mouth once daily DULoxetine (CYMBALTA) 30 mg capsule Indications: Fatigue , TMJ (temporomandibula r joint syndrome) , Sleep apnea Take 1 capsule by mouth once daily. 30 capsule 4 02/13/2014 Active 90 day estradiol 0.436003 mg/hr vaginal system (2 sources) Estrogen Start: 12-24-2015 estradiol (ESTRING) 2 mg vaginal ring Use 2 mg vaginally every 3 months. INSERT 1 RING DIRECTED 1 Each 3 12/24/2015 Active ferrous sulfate 325 mg oral tablet (2 sources) Start: 07-12-2009 ferrous sulfate(IRON 325 MG (65 MG IRON) TAB) Take one(1) tablet twice daily. 0 07/12/2009 Active folic acid 0.4 mg oral tablet (2 sources) Start: 11-26-2006 FOLIC ACID 400 MCG TAB Take one(1) tablet daily. 0 11/26/2006 Active omega-3 fatty acids/vitamin e(FISH OIL 1,000 MG CAP) (2 sources) Start: 07-12-2009 omega-3 fatty acids/vitamin e(FISH OIL 1,000 MG CAP) Take one (1) tablet daily. 0 07/12/2009 Active Problems Active Problems Problem Classification Problem Date Documented Date Episodic/Chronic Diverticulosis and diverticulitis (2 sources) Diverticulosis of colon; Translations: [Diverticulosis of large intestine without perforation or abscess without bleeding] Onset: 08-06-2009 08-06-2009 Chronic Menopausal disorders (4 sources) Menopausal symptom; Translations: [Menopausal and female climacteric states] Onset: 02-03-2011 02-03-2011 Chronic Residual codes; unclassified (2 sources) Sleep apnea; Translations: [Sleep apnea, unspecified] Onset: 05-23-2013 05-23-2013 Chronic Past or Other Problems Problem Classification Problem Date Documented Da te Episodic/Chronic Disorders of teeth and jaw (2 sources) Temporomandibular joint disorder; Translations: [Unspecified temporomandibular joint disorder, unspecified side] Onset: 3 05-23-2013 Episodic Gastrointestinal hemorrhage (2 sources) Rectal hemorrhage; Translations: [Hemorrhage of anus and rectum] Onset: 9 Resolved: 1 02-03-2011 Episodic Hemorrhoids (2 sources) Bleeding hemorrhoids; Translations: [Unspecified hemorrhoids] Onset: 9 Resolved: 1 02-03-2011 Episodic Malaise and fatigue (2 sources) Fatigue; Translations: [Other fatigue] Onset: 3 05-23-2013 Episodic Menstrual disorders (6 sources) Irregular periods; Translations: [Irregular menstruation, unspecified] Onset: 9 Resolved: 0 10-18-2009 Chronic Other female genital disorders (2 sources) Dyspareunia; Translations: [Dyspareunia] Onset: 9 Resolved: 1 02-03-2011 Chronic Ovarian cyst (2 sources) Cyst of ovary; Translations: [Unspecified ovarian cyst, unspecified side] Onset: 9 Resolved: 0 10-18-2009 Episodic Results Test Name Value Interpretation Reference Range Facil titaanitha MICHELLE 07-02-2024 CNOV Office Visit (OBGYWM ) RUSTAMSHAWNA ([id number]) 1960 F Date Time Provider Department 07/02/24 8:20 AM VANESSA MCINTOSH OBKAITLIN During your visit today, we recorded the following information about you: Blood pressure Weight Height 122/78 74.4 kg 1.651 m Vanessa Mcintosh MD 07/02/2024 9:26 AM Signed [place] offered: Patient accepts, visit chaperoned by Yanet Barber MAScar Matos is a 64 year old who presents for an annual gynecologic exam with complaints, vagina dryness and occ tearing. . Postmenopausal: Yes since age 50 HRT use: No. Last Pap: 03/15/2009 normal HPV: 03/09/2009 negative History of abnormal pap: No Last mammogram: 2022 normal History of abnormal mammogram: No Sexually active: Yes OB History T0 L4 SAB2 IAB0 Ectopic0 Multiple0 Live Births0 Plc Technician History LMP: 07/20/2009, Hysterectomy Age at Menarche: Age at First : Age at Menopause: Plc Technician History Comments: Sexual Activity: Yes; Male Contraception: Surgical PAST MEDICAL HISTORY Diagnosis Date Cervicitis and endocervicitis 10/01/1992 HPV cervicitis Daytime sleepiness on medication Diverticulosis of colon (without mention of hemorrhage) Environmental allergies Excessive or frequent menstruation Heavy periods External hemorrhoids with other complication Hemorrhage of rectum and anus Irregular menstrual cycle Irregular periods Lichen planus 2020 cheeks Postcoital bleeding Premenstrual tension syndromes PMS Sleep apnea 10/01/2010 Submandibular abscess 10/01/2012 Unspecified hemorrhoids without mention of complication Hemorrhoids PAST SURGICAL HISTORY Procedure Laterality Date CAUTERY CERVIX CRYOCAUTERY INITIAL/REPEAT 10/01/1992 HPV cervicitis COLONOSCOPY FLX DX W/COLLJ SPEC WHEN PFRMD 08/06/2009 Min. sigmoid diverticulosis/hemorrh oids COLONOSCOPY SCREENING DILATION AND CURETTAGE DXAND/THER NONOBSTETRIC Dilation AND curettage MISC DILATION AND CURETTAGE DXAND/THER NONOBSTETRIC Dilation AND curettage MISC DILATION AND CURETTAGE DXAND/THER NONOBSTETRIC 07/06/2009 Dilation AND curettage HYSTERECTOMY HX 08/31/2009 LAVH/BSO LIG/TRNSXJ FLP TUBE ABDL/VAG APPR UNI/BI Tubal ligation PAST SURGICAL HISTORY OF 10/01/1995 RECTAL REPAIR/HEMORRHOIDECTOM Y PCHG BIOPSY OF MOUTH LESION cheek- lichen planus TONSILLECTOMY PRIMARY/SECONDARY Tonsillectomy FAMILY HISTORY Problem Relation Age of Onset Alzheimer's Disease Mother Stroke Mother Hypertension Father Heart Father other (Other [Other]) Father DVTS Lymphoma Father Obstructive Sleep Apnea Sister Obstructive Sleep Apnea Sister Obstructive Sleep Apnea Brother Obstructive Sleep Apnea Brother Arthritis Maternal Grandmother Cancer Maternal Grandmother LYMPHOMA Arthritis Maternal Grandfather Heart Paternal Grandfather SOCIAL HISTORY Social History Tobacco Use Smoking status: Never Smokeless tobacco: Never Vaping Use Vaping status: Never Used Substance Use Topics Alcohol use: Yes Comment: occasional wine Drug use: No REVIEW OF SYSTEMS Abdomen: No abdominal pain, nausea, vomiting, diarrhea, or constipation. No bloating, early satiety, indigestion, or increased flatulence. Bladder: No dysuria, gross hematuria, urinary frequency, urinary urgency, or incontinence Breast: No breast lumps, nipple d/c, overlying skin changes, redness or skin retraction Allergies and current medication updated:Yes SENSITIVE EXAM: The sensitive examination was discussed with the Patient or Patient's Authorized Underwriting Service Representative. As applicable, any other physician, advance practice provider, medical student, or other health professional student that will be observing or involved in the sensitive examination for educational or training purposes was discussed with the Patient or Authorized Underwriting Service Representative. The Patient or Authorized Underwriting Service Representative has agreed to proceed with the sensitive examination. (Sensitive examination includes inspection and/or palpation of the breasts, pelvis, prostate and anorectal regions). EXAM: BP 122/78 Ht 5' 5 (1.65m) Wt 164 lb (74.4kg) LMP 07/20/2009 BMI 27.29 kg/(m2). GENERAL: pleasant, female in no apparent distress HEENT: Normocephalic, atraumatic, mucus membranes moist, and no lesions NECK: Supple, full range of motion, no adenopathy, and thyroid normal DERMATOLOGY: Normal, without lesions, non-icteric, and non-hirsute BREAST: soft, non-tender, symmetric, no dominant mass, normal nipple-areolar complex, no lymphadenopathy, and no nipple discharge CHEST: Normal inspiratory effort ABDOMEN: soft, non-tender, and no masses PELVIC: external genitalia normal, normal Bartholin's glands, urethra, [place]'s glands, no vulvar lesions, no cervical lesions, good vaginal support, physiologic discharge present, normal appearing perineal body and p (more content not included)... Normal [facility] Agustin 06-09-2024 SAYDA Telephone (OBGYWM) RUSTAMSHAWNA Casey ([id number]) 1960 F Date Time Provider Department 06/09/24 VANESSA MCINTOSH During your visit today, we recorded the following information about you: Karina Knight RN 06/09/2024 2:24 PM Signed Scheduled for annual with AT 07/02/24. Requesting mammogram order be faxed to [facility]. Order signed by RR and faxed to [facility]. Karina Knight RN Allergies As of Date: 06/09/2024 Noted Allergy Reaction ENVIRONMENTAL [Other] 11/23/2005 Comments: trees, springtime=sneezing, itchy eyes. Date Reviewed: 12/24/2015 Reviewed by: Yanet Barber (Estefany) - Fully Assessed Reason for Visit: Orders [681] Prescriptions as of 06/09/2024 - CALCIUM CARBONATE/VITAMIN D3 (VITAMIN D-3 ORAL) Take by mouth. - estradiol (ESTRING) 2 mg vaginal ring Use 2 mg vaginally every 3 months. INSERT 1 RING DIRECTED - DULoxetine (CYMBALTA) 30 mg capsule Take 1 capsule by mouth once daily. - ACYCLOVIR ORAL Take by mouth. - armodafinil (NUVIGIL) 250 mg Tab Take by mouth once daily. - cetirizine hcl(ZYRTEC 10 MG TAB) Use as directed as needed. - ferrous sulfate(IRON 325 MG (65 MG IRON) TAB) Take one(1) tablet twice daily. - cod liver oil(COD LIVER OIL CHEWABLE TAB) Take one (1) tablet daily. - omega-3 fatty acids/vitamin e(FISH OIL 1,000 MG CAP) Take one (1) tablet daily. - calcium carbonate(CORAL CALCIUM 185 MG TAB) one tablet daily - FOLIC ACID 400 MCG TAB Take one(1) tablet daily. - DAILY MULTIVITAMIN TAB Problem List As Of Date 06/09/2024 Noted Resolved Irregular Menstrual Cycle [N92.6] 06/10/2009 10/18/2009 Excessive or Frequent Menstruation [N92.0] 06/10/2009 10/18/2009 Dyspareunia [GRV5387] 06/10/2009 02/03/2011 Dysmenorrhea [N94.6] 06/10/2009 10/18/2009 Other and Unspecified Ovarian Cyst [N83.209] 06/10/2009 10/18/2009 Rectal bleeding [K62.5] 07/21/2009 02/03/2011 Bleeding hemorrhoid [K64.9] 08/06/2009 02/03/2011 Diverticulosis of Colon [K57.30] 08/06/2009 Symptomatic menopausal or female climacteric st*02/03/2011 Postmenopausal atrophic vaginitis [N95.2] 03/08/2012 Fatigue [R53.83] 05/23/2013 TMJ (temporomandibular joint syndrome) [M26.609]05/23/2013 Sleep apnea [G47.30] 05/23/2013 Encounter Status:Closed by KARINA KNIGHT on 06/09/24 Normal [facility] HAND, MINIMUM 3 VIEWSon 11-30 HAND, MINIMUM 3 VIEWS Final ReportAccession No: [id number] Performed: Dec 26 2017 2:11PMExamination: LEFT HAND, MINIMUM 3 VIEWSEXAM TYPE: HAND, MINIMUM 3 VIEWS LEFTEXAM DATE AND TIME: 12/26/2017 2:11 PMINDICATION: 57-year-old female with fifth metacarpal pain after trauma.COMPARISON: None.TECHNIQUE: AP, lateral and oblique views of the left hand.FINDINGS:No acute fracture. Joint alignment is anatomic. Joint spaces arepreserved.Soft tissue swelling over the ulnar aspect of the hand.IMPRESSION:No acute fracture or traumatic malalignment.Interpret ing Physician: TITO CAREY D.O.Trans: dw : cc: Normal [facility] Vital Signs Date Time Vital Sign Value Performing Clinician Faci lity 07-02-2024 08:35-0400 Body height 165.1 cm Vanessa Mcintosh MD Work Phone: [facility] 07-02-2024 08:35-0400 Body mass index (BMI) [Ratio] 27.29 kg/m2 Vanessa Mcintosh MD Work Phone: [facility] 07-02-2024 08:35-0400 Body weight 74.39 kg Vanessa Mcintosh MD Work Phone: [facility] 07-02-2024 08:35-0400 Diastolic blood pressure 78 mm[Hg] Vanessa Mcintosh MD Work Phone: [facility] 07-02-2024 08:35-0400 Systolic blood pressure 122 mm[Hg] Vanessa Mcintosh MD Work Phone: [facility] Encounters Encounter Date Encounter Type Care Provider Facility Start: 07-02-2024 End: 07-02-2024 ambulatory VANESSA MCINTOSH Facility:[facility] Start: 07-02-2024 End: 07-02-2024 Patient encounter procedure Vanessa Mcintosh MD Work Phone: OB/Gynecology Comment on above: Encounter for gyneco logical examination (general) (routine) without abnormal findings (Primary Dx) Start: 07-02-2024 End: 07-02-2024 Patient encounter status Vanessa Mcintosh MD Work Phone: [facility] Start: 06-09-2024 End: 06-09-2024 Telephone encounter Vanessa Mcintosh MD Work Phone: OB/Gynecology Comment on above: Orders Start: 12-02-2020 End: 12-02-2020 Orders Only Fernanda Mesaluiza Valera Work Phone: [facility] Start: 05-23-2018 End: 05-24-2018 Patient encounter BRIT FREEMAN Facility:[facility] Start: 01-10-2018 End: 01-11-2018 Patient encounter BRIT FREEMAN Facility:[facility] Start: 12-26-2017 Ambulatory Anel De Dios Facility: [facility] Start: 12-26-2017 End: 12-26-2017 Ambulatory Anel De Dios Work Phone: [facility] Procedures Date Procedure Procedure Detail Performing Clinician Start: 08-06-2009 Colonoscopy Vaenssa tucker MD Work Phone: Plan of Treatment Date Care Activity Detail Author Start: 01-24-2035 RSV Vaccine (1 - 1-d ose 75+ series) RSV Vaccine (1 - 1-dose 75+ series) [facility] Start: 07-06-2025 End: 07-06-2025 Patient encounter procedure 07/06/2025 8:00 AM EDT Office Visit OB/Gynecology [address] [place] [id number] Vanessa Mcintosh MD [address] [place] [address] Annual OB/Gynecology Comment on above: Annual Start: 07-02-2024 End: 07-02-2024 Patient encounter procedure 07/02/2024 8:20 AM EDT Office Visit OB/Gynecology [address] [place] [address] Vanessa Mcintosh MD [address] [id number] annual OB/Gynecology Comment on above: annual Start: 06-01-2024 Covid-19 Vaccine ( season) Covid-19 Vaccine ( season) [facility] Start: 06-01-2024 Covid-19 Vaccine ( season) Covid-19 Vaccine ( season) [facility] Start: 06-01-2024 Influenza vaccination Influenza Vacc ine (#1) [facility] Start: 2020 RSV Vaccine (1 - 1-d ose 60+ series) RSV Vaccine (1 - 1-dose 60+ series) [facility] Start: 08-06-2019 Screening for malign ant neoplasm of colon [facility] Start: 12-10-2017 Urine microalbumin profile DTa P,Tdap,Td Vaccine (2 - Td or Tdap) [facility] Start: 12-23-2016 Screening for malign ant neoplasm of breast Mammogram Screening [facility] Start: 01-24-2010 Shingrix Vaccine (1 of 2) Cerrato grix Vaccine (1 of 2) [facility] Start: 01-24-2005 Diabetes Screening Diabetes Screenin g [facility] Start: 01-24-2005 Lipid panel Lipid Screening [facility] Start: 01-24-2005 Screening for malign ant neoplasm of colon [facility] Start: 01-24-1978 Anxiety Screening Anxiety Screening [facility] Start: 01-24-1978 Depression Screening Depression Scre ening [facility] Start: 01-24-1978 Hepatitis C screening Hepatitis C Sc celeste [facility] Start: 01-24-1978 HIV screening HIV Screening [facility] Immunizations Immunization Date Immunization Notes Care Provider Roxana frost 08-19-2014 influenza virus vacc ine, unspecified formulation Vanessa Mcintosh MD Work Phone: [facility] 12-11-2007 tetanus toxoid, redu rocío diphtheria toxoid, and acellular pertussis vaccine, adsorbed Vanessa Mcintosh MD Work Phone: [facility] Payers Date Payer Category Payer Unknown [employer] PPO OOS [id number] 2017-Present [phone] [address] [place] [address] PPO [id number] 2017 [facility] [id number] Social History Date Type Detail Facility Start: 12-27-2017 [facility] Start: 1960 [facility] Start: 05-14-2013 [facility] tobacco [facility] Start: 05-14-2013 Tobacco use and exposure Smoke less tobacco non-user [facility] Start: 05-17-2022 End: 07-02-2024 Alcoholic beverage intake Current drinker of alcohol (finding) [facility] Start: 05-17-2022 End: 07-02-2024 History of Social function [facility] Start: 05-17-2022 End: 07-02-2024 Tobacco use panel [facility] Progress note 07-02-2024 Note Date & Type Note Facility 07-02-2024 Note HNO ID: [id number] Author: VANESSA MCINTOSH MD Service: ? Author Type: Physician Type: Progress Notes Filed: 07/02/2024 09:26 Note Text: [place] offered: Patient accepts, visit chaperoned by Yanet Barber MA. Shawna is a 64 year old who presents for an annual gynecologic exam with complaints, vagina dryness and occ tearing. . Postmenopausal: Yes since age 50 HRT use: No. Last Pap: 03/15/2009 normal HPV: 03/09/2009 negative History of abnormal pap: No Last mammogram: 2022 normal History of abnormal mammogram: No Sexually active: Yes OB History T0 L4 SAB2 IAB0 Ectopic0 Multiple0 Live Births0 Plc Technician History LMP: 07/20/2009, Hysterectomy Age at Menarche: Age at First : Age at Menopause: Plc Technician History Comments: Sexual Activity: Yes; Male Contraception: Surgical PAST MEDICAL HISTORY Diagnosis Date Cervicitis and endocervicitis 10/01/1992 HPV cervicitis Daytime sleepiness on medication Diverticulosis of colon (without mention of hemorrhage) Environmental allergies Excessive or frequent menstruation Heavy periods External hemorrhoids with other complication Hemorrhage of rectum and anus Irregular menstrual cycle Irregular periods Lichen planus 2020 cheeks Postcoital bleeding Premenstrual tension syndromes PMS Sleep apnea 10/01/2010 Submandibular abscess 10/01/2012 Unspecified hemorrhoids without mention of complication Hemorrhoids PAST SURGICAL HISTORY Procedure Laterality Date CAUTERY CERVIX CRYOCAUTERY INITIAL/REPEAT 10/01/1992 HPV cervicitis COLONOSCOPY FLX DX W/COLLJ SPEC WHEN PFRMD 08/06/2009 Min. sigmoid diverticulosis/hemorrhoids COLONOSCOPY SCREENING DILATION AND CURETTAGE DXAND/THER NONOBSTETRIC Dilation AND curettage MISC DILATION AND CURETTAGE DXAND/THER NONOBSTETRIC Dilation AND curettage MISC DILATION AND CURETTAGE DXAND/THER NONOBSTETRIC 07/06/2009 Dilation AND curettage HYSTERECTOMY HX 08/31/2009 LAVH/BSO LIG/TRNSXJ FLP TUBE ABDL/VAG APPR UNI/BI Tubal ligation PAST SURGICAL HISTORY OF 10/01/1995 RECTAL REPAIR/HEMORRHOIDECTOMY PCHG BIOPSY OF MOUTH LESION cheek- lichen planus TONSILLECTOMY PRIMARY/SECONDARY Tonsillectomy FAMILY HISTORY Problem Relation Age of Onset Alzheimer's Disease Mother Stroke Mother Hypertension Father Heart Father other (Other [Other]) Father DVTS Lymphoma Father Obstructive Sleep Apnea Sister Obstructive Sleep Apnea Sister Obstructive Sleep Apnea Brother Obstructive Sleep Apnea Brother Arthritis Maternal Grandmother Cancer Maternal Grandmother LYMPHOMA Arthritis Maternal Grandfather Heart Paternal Grandfather SOCIAL HISTORY Social History Tobacco Use Smoking status: Never Smokeless tobacco: Never Vaping Use Vaping status: Never Used Substance Use Topics Alcohol use: Yes Comment: occasional wine Drug use: No REVIEW OF SYSTEMS Abdomen: No abdominal pain, nausea, vomiting, diarrhea, or constipation. No bloating, early satiety, indigestion, or increased flatulence. Bladder: No dysuria, gross hematuria, urinary frequency, urinary urgency, or incontinence Breast: No breast lumps, nipple d/c, overlying skin changes, redness or skin retraction Allergies and current medication updated:Yes SENSITIVE EXAM: The sensitive examination was discussed with the Patient or Patient's Authorized Underwriting Service Representative. As applicable, any other physician, advance practice provider, medical student, or other health professional student that will be observing or involved in the sensitive examination for educational or training purposes was discussed with the Patient or Authorized Underwriting Service Representative. The Patient or Authorized Underwriting Service Representative has agreed to proceed with the sensitive examination. (Sensitive examination includes inspection and/or palpation of the breasts, pelvis, prostate and anorectal regions). EXAM: BP 122/78 Ht 5' 5 (1.65m) Wt 164 lb (74.4kg) LMP 07/20/2009 BMI 27.29 kg/(m2). GENERAL: pleasant, female in no apparent distress HEENT: Normocephalic, atraumatic, mucus membranes moist, and no lesions NECK: Supple, full range of motion, no adenopathy, and thyroid normal DERMATOLOGY: Normal, without lesions, non-icteric, and non-hirsute BREAST: soft, non-tender, symmetric, no dominant mass, normal nipple-areolar complex, no lymphadenopathy, and no nipple discharge CHEST: Normal inspiratory effort ABDOMEN: soft, non-tender, and no masses PELVIC: external genitalia normal, normal Bartholin's glands, urethra, [place]'s glands, no vulvar lesions, no cervical lesions, good vaginal support, physiologic discharge present, normal appearing perineal body and perianal region, cervix surgically absent BIMANUAL: no adnexal masses, non-tender, and uterus surgically absent RECTOVAGINAL: rectovaginal exam negative for any masses or nodularity. NEURO: alert and oriented x3,exam grossly non-focal EXTREMITIES: n (more content not included)... [facility] History of Present illness Narrative 07-02-2024 Vanessa Mcintosh MD - 07/02/2024 8:25 AM EDT Note Date & Type Note Facility 07-02-2024 History of Presen t illness Narrative [place] offered: Patient accepts, visit chaperoned by Yanet Barber MA. Shawna is a 64 year old who presents for an annual gynecologic exam with complaints, vagina dryness and occ tearing. . Postmenopausal: Yes since age 50 HRT use: No. Last Pap: 03/15/2009 normal HPV: 03/09/2009 negative History of abnormal pap: No Last mammogram: 2022 normal History of abnormal mammogram: No Sexually active: Yes OB History T0 L4 SAB2 IAB0 Ectopic0 Multiple0 Live Births0 Plc Technician History LMP: 07/20/2009, Hysterectomy Age at Menarche: Age at First : Age at Menopause: Plc Technician History Comments: Sexual Activity: Yes; Male Contraception: Surgical PAST MEDICAL HISTORY Diagnosis Date Cervicitis and endocervicitis 10/01/1992 HPV cervicitis Daytime sleepiness on medication Diverticulosis of colon (without mention of hemorrhage) Environmental allergies Excessive or frequent menstruation Heavy periods External hemorrhoids with other complication Hemorrhage of rectum and anus Irregular menstrual cycle Irregular periods Lichen planus 2020 cheeks Postcoital bleeding Premenstrual tension syndromes PMS Sleep apnea 10/01/2010 Submandibular abscess 10/01/2012 Unspecified hemorrhoids without mention of complication Hemorrhoids PAST SURGICAL HISTORY Procedure Laterality Date CAUTERY CERVIX CRYOCAUTERY INITIAL/REPEAT 10/01/1992 HPV cervicitis COLONOSCOPY FLX DX W/COLLJ SPEC WHEN PFRMD 08/06/2009 Min. sigmoid diverticulosis/hemorrhoids COLONOSCOPY SCREENING DILATION & CURETTAGE DX&/THER NONOBSTETRIC Dilation & curettage MISC DILATION & CURETTAGE DX&/THER NONOBSTETRIC Dilation & curettage MISC DILATION & CURETTAGE DX&/THER NONOBSTETRIC 07/06/2009 Dilation & curettage HYSTERECTOMY HX 08/31/2009 LAVH/BSO LIG/TRNSXJ FLP TUBE ABDL/VAG APPR UNI/BI Tubal ligation PAST SURGICAL HISTORY OF 10/01/1995 RECTAL REPAIR/HEMORRHOIDECTOMY PCHG BIOPSY OF MOUTH LESION cheek- lichen planus TONSILLECTOMY PRIMARY/SECONDARY <AGE 12 Tonsillectomy FAMILY HISTORY Problem Relation Age of Onset Alzheimer's Disease Mother Stroke Mother Hypertension Father Heart Father other (Other [Other]) Father DVTS Lymphoma Father Obstructive Sleep Apnea Sister Obstructive Sleep Apnea Sister Obstructive Sleep Apnea Brother Obstructive Sleep Apnea Brother Arthritis Maternal Grandmother Cancer Maternal Grandmother LYMPHOMA Arthritis Maternal Grandfather Heart Paternal Grandfather SOCIAL HISTORY Social History Tobacco Use Smoking status: Never Smokeless tobacco: Never Vaping Use Vaping status: Never Used Substance Use Topics Alcohol use: Yes Comment: occasional wine Drug use: No REVIEW OF SYSTEMS Abdomen: No abdominal pain, nausea, vomiting, diarrhea, or constipation. No bloating, early satiety, indigestion, or increased flatulence. Bladder: No dysuria, gross hematuria, urinary frequency, urinary urgency, or incontinence Breast: No breast lumps, nipple d/c, overlying skin changes, redness or skin retraction Allergies and current medication updated:Yes SENSITIVE EXAM: The sensitive examination was discussed with the Patient or Patient's Authorized Underwriting Service Representative. As applicable, any other physician, advance practice provider, medical student, or other health professional student that will be observing or involved in the sensitive examination for educational or training purposes was discussed with the Patient or Authorized Underwriting Service Representative. The Patient or Authorized Underwriting Service Representative has agreed to proceed with the sensitive examination. (Sensitive examination includes inspection and/or palpation of the breasts, pelvis, prostate and anorectal regions). EXAM: BP 122/78 Ht 5' 5 (1.65m) Wt 164 lb (74.4kg) LMP 07/20/2009 BMI 27.29 kg/(m^2). GENERAL: pleasant, female in no apparent distress HEENT: Normocephalic, atraumatic, mucus membranes moist, and no lesions NECK: Supple, full range of motion, no adenopathy, and thyroid normal DERMATOLOGY: Normal, without lesions, non-icteric, and non-hirsute BREAST: soft, non-tender, symmetric, no dominant mass, normal nipple-areolar complex, no lymphadenopathy, and no nipple discharge CHEST: Normal inspiratory effort ABDOMEN: soft, non-tender, and no masses PELVIC: external genitalia normal, normal Bartholin's glands, urethra, [place]'s glands, no vulvar lesions, no cervical lesions, good vaginal support, physiologic discharge present, normal appearing perineal body and perianal region, cervix surgically absent BIMANUAL: no adnexal masses, non-tender, and uterus surgically absent RECTOVAGINAL: rectovaginal exam negative for any masses or nodularity. NEURO: alert and oriented x3,exam grossly non-focal EXTREMITIES: normal ASSESSMENT/PLAN: 1) Health maintenance: Mammogram ordered 2) Follow up one year or sooner as needed Vanessa Mcintosh MD documented in this encounter [facility] Telephone encounter Note 06-09-2024 Telephone Encounter - Karina Knight RN - 06/09/2024 1:39 PM EDT Note Date & Type Note Facility 06-09-2024 Telephone encount er Note Scheduled for annual with AT 07/02/24. Requesting mammogram order be faxed to [facility]. Order signed by RR and faxed to [facility]. Karina Knight RN [facility] Note 06-09-2024 Telephone Encounter - Karina Knight RN - 06/09/2024 1:39 PM EDT Note Date & Type Note Facility 06-09-2024 Miscellaneous Notes Formattin g of this note might be different from the original. Scheduled for annual with AT 07/02/24. Requesting mammogram order be faxed to [facility]. Order signed by RR and faxed to [facility]. Karina Knight RN documented in this encounter [facility] Evaluation note Note Date & Type Note Facility Evaluation note Diagnosis Encounter for gynecological examination (general) (routine) without abnormal findings- Primary documented in this encounter [facility] Summary Purpose Family History No Family History Records FoundNo Family History Records FoundNo Family History Records Found Advance Directives No Advanced Directives Records FoundNo Advanced Directives Records FoundNo Advanced Directives Records Found Additional Source Comments INFORMATION SOURCE (unrecogn ized section and content) DATE CREATED AUTHOR 04/04/2018 [facility] DATE CREATED AUTHOR AUTHOR'S ORGANIZ ATION 05/25/2018 [facility] DATE CREATED AUTHOR AUTHOR'S ORGANIZ ATION 07/03/2024 [facility] Source Comments (unrecognize d section and content) In the event this informatio n is protected by the Federal Confidentiality of Alcohol and Drug Abuse Patient Records regulations: The Federal rules restrict any use of the information to criminally investigate or prosecute any alcohol or drug abuse patient.[facility] event this information is protected by the Federal Confidentiality of Alcohol and Drug Abuse Patient Records regulations: The Federal rules restrict any use of the information to criminally investigate or prosecute any alcohol or drug abuse patient.[facility] Reason for Visit (unrecogniz ed section and content) Reason Comments Orders Reason Comments Yearly Exam Care Teams (unrecognized sec tion and content) [employer] Relationship Specialty Start Date End Date Namrata Winslow MD [address] [place] [address] PCP - General 10/08/03 P[employer] Sounding [employer] Matcher Relationship Specialty Start Date End Date Namrata Winslow MD [address] [facility] [address] PCP - General 10/08/03 FOR RECORDS PERTAINING TO PATIENTS WHO ARE OR HAVE BEEN ENROLLED IN A CHEMICAL DEPENDENCY/SUBSTANCEABUSE PROGRAM, SOME INFORMATION MAY BE OMITTED. This clinical summary was aggregated from multiple sources. Caution should be exercised in using it in the provision of clinical care. This summary normalizes information from multiple sources, and as a consequence, information in this document may materially change the coding, format and clinical context of patient data. In addition, data may be omitted in some cases. CLINICAL DECISIONS SHOULD BE BASED ON THE PRIMARY CLINICAL RECORDS. [facility] [employer] [facility]. provides no warranty or guarantee of the accuracy or completeness of information in this document.
== END | disposition home or self-care (01) ==
LOC: OPBI 07:04
PROVIDERS: PCP Family Medicine; Referring Provider Obstetrics & Gynecology; Visit Provider Obstetrics & Gynecology
DX: Z12.31 Encounter for screening mammogram for malignant neoplasm of breast (principal)
CPT/HCPCS: 77063; 77067

== ENCOUNTER → 2025-01-30 | Outpatient (CLI) | payer MEDICARE, SELFPAY ==
[2025-02-01 08:10] LABS: Rubeola IgG Ab < 13.5 AU/mL (Immune >16.4)
== END | disposition home or self-care (01) ==
LOC: MTLAB 14:46
PROVIDERS: PCP Family Medicine; Referring Provider Family Medicine; Visit Provider Family Medicine
DX: R82.90 Unspecified abnormal findings in urine (principal)
CPT/HCPCS: 36415; 86765

== ENCOUNTER → 2025-07-28 | Outpatient (CLI) | payer MEDICARE, SELFPAY ==
--- NOTE | 2025-07-28 12:15 | BI_ITS ---
EXAM: BI/SCRN MAMM (CAD)W/SEGUN BILAT
== END | disposition home or self-care (01) ==
PROVIDERS: PCP Family Medicine; Referring Provider Family Medicine; Visit Provider Family Medicine
DX: Z12.31 Encounter for screening mammogram for malignant neoplasm of breast (principal)
CPT/HCPCS: 77063; 77067